=== PATIENT | female | born 2000 | race Caucasian/White ===

== ENCOUNTER 2019-06-29 03:15 | Inpatient (IN) ==
[2019-06-29] MEDS ORDERED: *HR* LORazepam 1 MG TABLET PO PRN (03:30)
[2019-06-29] MEDS ORDERED: Mag Hydrox/Al Hydrox/Simeth 30 ML UDC PO PRN (03:30)
[2019-06-29] MEDS ORDERED: MOM Conc 10 ML UD.LIQ PO PRN (03:30)
[2019-06-29] MEDS ORDERED: *HR* LORazepam 2 MG/ML VIAL IM PRN (03:30)
[2019-06-29] MEDS ORDERED: Ibuprofen 400 MG TABLET PO PRN (03:30)
[2019-06-29] MEDS ORDERED: Haloperidol Lactate 5 MG/ML VIAL IM PRN (03:30)
[2019-06-29] MEDS ORDERED: traZODone 50 MG TABLET PO PRN (03:30)
[2019-06-29] MEDS: Nicotine 2 MG GUM BC PRN (19:38)
[2019-06-29] MEDS: hydrOXYzine pamoate 25 MG CAPSULE PO PRN (21:21)
[2019-06-29] MEDS: traZODone 50 MG TABLET PO PRN (21:21)
[2019-06-30] MEDS: Nicotine 2 MG GUM BC PRN ×3 (08:56→18:22)
[2019-06-30] MEDS: hydrOXYzine pamoate 25 MG CAPSULE PO PRN ×2 (13:39→21:30)
[2019-06-30] MEDS: traZODone 50 MG TABLET PO PRN (21:30)
[2019-07-01] MEDS: Nicotine 2 MG GUM BC PRN ×2 (09:42→18:41)
[2019-07-01] MEDS: hydrOXYzine pamoate 25 MG CAPSULE PO PRN (20:12)
[2019-07-01] MEDS: traZODone 50 MG TABLET PO PRN (21:43)
[2019-07-02] MEDS: Nicotine 2 MG GUM BC PRN ×3 (08:50→17:11)
[2019-07-02] MEDS: hydrOXYzine pamoate 25 MG CAPSULE PO PRN ×2 (16:59→21:17)
[2019-07-02] MEDS: traZODone 50 MG TABLET PO PRN (21:17)
[2019-07-03] MEDS: Nicotine 2 MG GUM BC PRN (10:13)
[2019-07-03 11:24] VITALS: BP 99/70
== END 2019-07-03 12:35 | disposition home or self-care (01) | DRG 751 ==
LOC: SUATTDRO 03:15 → 1ANU 03:15
PROVIDERS: ADMIT Psychiatry & Neurology Psychiatry; ATTEND Psychiatry & Neurology Forensic Psychiatry